=== PATIENT | female | born 1990 | race Caucasian/White ===

== ENCOUNTER 2018-04-22 08:16 | Observation (INO) | payer OTHER, MEDICAID, SELFPAY ==
[2018-04-22] MEDS: TERBUTALINE 1 MG/ML VIAL 0.25 MG SUBCUT (13:32)
--- NOTE | 2018-04-29 06:19 | PM.OBTRLD ---
Visit Information Visit Information Date of evaluation: 04/22/18 On-call OB Provider: Bettina Cassidy Reason for Evaluation: Yes non-stress test non-stress test reason: other (External version) Exam Vital Signs (past 8 hours): Nonstress test was category 1 prior to the version. Informed consent was obtained. The patient understands the risk of external version going into labor, ruptured membranes, shearing of the placenta, distress. Procedure: After informed consent was obtained and position of the baby was verified an external version was performed Dr. Duenas lifting bottom out of the pelvis with a vaginal exam. On the 3rd try a successful version occurred. The heart rate was checked between each attempts. There was a category 1 tracing after the procedure. Diagnosis, Plan/Disposition Final Diagnosis (1) Breech presentation: Current Visit: No Status: Acute (2) Successful external cephalic version: Current Visit: No Status: Acute Plan/Disposition Plan: Assessment: 28-year-old 2 para 1 at 36 weeks gestation with breech presentation Successful external version Plan: Abdominal binder Follow-up with director airport operations as scheduled kick counts reviewed Patient instructed to call with decreased movement, leakage of fluid, or vaginal bleeding
--- NOTE | 2018-04-29 06:22 | P.TNLD_ITS ---
Visit Information Visit Information Date of evaluation: 04/22/18 On-call OB Provider: Bettina Cassidy Reason for Evaluation: Yes non-stress test non-stress test reason: other (External version) Exam Vital Signs (past 8 hours): Nonstress test was category 1 prior to the version. Informed consent was obtained. The patient understands the risk of external version going into labor, ruptured membranes, shearing of the placenta, distress. Procedure: After informed consent was obtained and position of the baby was verified an external version was performed Dr. Duenas lifting bottom out of the pelvis with a vaginal exam. On the 3rd try a successful version occurred. The heart rate was checked between each attempts. There was a category 1 tracing after the procedure. Diagnosis, Plan/Disposition Final Diagnosis (1) Breech presentation: Current Visit: No Status: Acute (2) Successful external cephalic version: Current Visit: No Status: Acute Plan/Disposition Plan: Assessment: 28-year-old 2 para 1 at 36 weeks gestation with breech presentation Successful external version Plan: Abdominal binder Follow-up with [employer] as scheduled kick counts reviewed Patient instructed to call with decreased movement, leakage of fluid, or vaginal bleeding
== END 2018-04-22 14:40 | disposition home or self-care (01) ==
PROVIDERS: Admitting Provider Obstetrics & Gynecology; Visit Provider Obstetrics & Gynecology
DX: O32.1XX0 Maternal care for breech presentation, not applicable or unspecified (principal); Z3A.36 36 weeks gestation of pregnancy
CPT/HCPCS: 59025; 59050; 59412; 76815; 96372; G0378; G0379